=== PATIENT | male | born 1975 | race African-American/Black ===

== ENCOUNTER → 2024-08-09 | Outpatient (CLI) | payer OTHER ==
[~2024-08-09] MED LIST: AML5T PO; AMOX500T86 PO; DOXY150C6 PO; NICO14DI9 TD; POTA-36 PO; PRED20TA2 PO
--- NOTE | 2024-08-15 12:00 | DVHNC2 ---
Procedure - August 09, 2024 Pulmonary function test interpretation No obstructive or restrictive ventilatory defect. No significant bronchodilator response. Total lung capacity is below normal limits, 62% of predicted (3.35 L). Diffusion capacity is within normal limits, 85% of predicted. ROB MORALES MD Aug 15, 2024 12:00
== END | disposition home or self-care (01) ==
LOC: XYW 10:38
PROVIDERS: ATTEND Internal Medicine Pulmonary Disease
DX: R06.09 Other forms of dyspnea (principal)
CPT/HCPCS: 94060; 94727; 94729